=== PATIENT | female | born 1970 | race Caucasian/White ===

== ENCOUNTER 2016-10-05 10:06 | Emergency (ER) | payer OTHER ==
[~2016-10-05] VITALS: Ht 152.4 cm; Wt 58.2 kg
[2016-10-05] MEDS ORDERED: SODIUM CHLORIDE 0.9% 1,000 ML IV ONE (10:51)
[2016-10-05] MEDS ORDERED: METOCLOPRAMIDE 5 MG/ML, 2ML ONE (11:28)
[2016-10-05] MEDS ORDERED: DIPHENHYDRAMINE 50 MG/ML, 1ML ONE (11:28)
[2016-10-05] MEDS ORDERED: METOCLOPRAMIDE 5 MG/ML, 2ML IVPush ONE (11:30)
[2016-10-05] MEDS ORDERED: DIPHENHYDRAMINE 50 MG/ML, 1ML IVPush ONE (11:30)
[2016-10-05 11:54] LABS: ASPARTATE AMINO TRANSFERASE 21 U/L (15-37); BLOOD UREA NITROGEN 15 mg/dL (7-18)
[2016-10-05 12:34] VITALS: BP 99/59
== END 2016-10-05 13:51 | disposition home or self-care (01) ==
LOC: ED 10:58
DX: R51 Headache (principal); R53.83 Other fatigue
CPT/HCPCS: 36415; 70450; 74022; 80053; 81003; 83690; 84703; 85025; 93005; 96361; 96374; 96375; 99285; J1200; J2765; J7030

== ENCOUNTER → 2020-08-28 | Outpatient (CLI) | payer OTHER ==
[~2020-08-28] MED LIST: ALPRazolam 1MG TAB ONE
== END | disposition home or self-care (01) ==
LOC: RAD 07:23 → EDSTATUS 07:30
PROVIDERS: ATTEND Neurological Surgery
DX: M51.26 Other intervertebral disc displacement, lumbar region (principal); M50.30 Other cervical disc degeneration, unspecified cervical region; M48.061 Spinal stenosis, lumbar region without neurogenic claudication; M47.816 Spondylosis without myelopathy or radiculopathy, lumbar region
CPT/HCPCS: 72050; 72110; 72141; 72148

== ENCOUNTER 2020-09-25 10:50 | Outpatient (CLI) | payer OTHER ==
[~2020-09-25 10:50] MED LIST changes: +ALPR1TAB2 PO; -ALPRazolam 1MG TAB ONE
[2020-09-25] MEDS ORDERED: ALPRazolam 1MG TAB ONE (11:26)
== END 2020-09-25 23:59 | disposition home or self-care (01) ==
LOC: RAD 10:50 → EDSTATUS 11:00 → RAD 23:59
PROVIDERS: ATTEND Neurological Surgery
DX: R51.9 Headache, unspecified (principal); J34.89 Other specified disorders of nose and nasal sinuses; M54.5 Low back pain; M54.2 Cervicalgia
CPT/HCPCS: 70551; 72146